=== PATIENT | male | born 1950 | race Two or more races ===

== ENCOUNTER 2016-07-08 13:52 | Emergency (ER) | payer BC ==
[~2016-07-08] VITALS: Ht 162.6 cm; Wt 83.9 kg
--- NOTE | 2016-07-08 14:32 | Emergency Room Report ---
History of Present Illness General Chief Complaint: Male Urogenital Problems Source: Patient Present Illness HPI Patient presents with 3 days of fevers chills and dysuria. He's also had blood in the urine. Couple months ago he also passed a kidney stone. At that time he also had fevers and chills. He saw his PMD. today and sent here to rule out a renal stone. The patient denies any flank pain or back pain. He denies nausea vomiting diarrhea cough sore throat rash. Pain 4/10, more dysuria - "like a habanero when I urinate". No abdominal pain or fullness. No change in bowels. Several months ago he had some reaction to eating spicy foods and he feels that this may be related (his thinks this is a contributing factor at least). No extremity pain, headache, depression, polyuria. Allergies: Coded Allergies: No Known Allergies (Unverified , 07/08/16) Patient History Past Medical History: see triage record, HTN Social History Narrative - noc analyst Reviewed Nursing Documentation: PMH: Agreed, PSxH: Agreed Nursing Documentation-PMH Past Medical History: No History, Except For Hx Hypertension: Yes Review of Systems All Other Systems: negative except mentioned in HPI Physical Exam Vital Signs Date Time Temp Pulse Resp B/P Pulse Ox O2 Delivery O2 Flow Rate FiO2 07/08/16 14:13 100.2 71 18 119/73 98 Room Air Sp02 EP Interpretation: reviewed, normal General Appearance: well appearing, no apparent distress, GCS 15 Head: normocephalic Eyes: bilateral eye PERRL, bilateral eye normal inspection ENT: moist mucus membranes Neck: supple Respiratory: lungs clear, normal breath sounds Cardiovascular #1: regular rate, rhythm Cardiovascular #2: 2+ radial (R) Gastrointestinal: normal inspection, normal bowel sounds, non tender, no mass, non-distended Genitourinary: no CVA tenderness Musculoskeletal: back normal, gait/station normal, normal range of motion Neurologic: alert, oriented x3, grossly normal Psychiatric: mood/affect normal - dry humor Skin: normal inspection, warm/dry Medical Decision Making Diagnostic Impression: Primary Impression: Pyelonephritis Additional Impression: Renal calculus, left ER Course Patient presents with chills fever dysuria and hematuria. Differential includes stone, pyelonephritis, urinary tract infection, prostatitis. He be evaluated with labs, urinalysis and ultrasound. He denies any pain at this time. He'll be given Tylenol as been having fevers and chills. In addition he appears normal the neck and therefore IV hydration as not necessary. Labs with normal WBC. Elevated creat (no prior labs). U/S with stone, no obstruction. Concern over possible infected stone and elevated creat, but patient not toxic and clinically improved. Attempt to speak to PMD - not able as phones not working. Will treat outpatient observation. Discussed need to be evaluated by urologist. If not doing well to return to be admitted to hospital. Patient a understand this plan. Patient stable for outpatient observation and treatment. Provided with labs. Not tx with flomax as stone not descending. If pain or sy worsen, should get CT. He understands we are observing him at home. Laboratory Tests Test 07/08/16 14:20 07/08/16 15:00 Urine Color Yellow Urine Appearance Clear Urine pH 5 (4.5-8.0) Urine Specific [place] 1.020 (1.005-1.035) Urine Protein 2+ (NEGATIVE) H Urine Glucose (UA) Negative (NEGATIVE) Urine Ketones 1+ (NEGATIVE) H Urine Occult Blood 2+ (NEGATIVE) H Urine Nitrite Negative (NEGATIVE) Urine Bilirubin 1+ (NEGATIVE) H Urine Ictotest Negative Urine Urobilinogen 8 MG/DL (0.0-1.0) H Urine Leukocyte Esterase 3+ (NEGATIVE) H Urine RBC 2-4 /HPF (0 - 0) H Urine WBC 15-20 /HPF (0 - 0) H Urine Squamous Epithelial Cells Occasional /LPF Urine Bacteria Few /HPF (NONE) Urine Mucus Few /LPF (NONE/OCC) H White Blood Count 7.3 K/UL (4.8-10.8) Red Blood Count 5.22 M/UL (4.70-6.10) Hemoglobin 16.0 G/DL (14.2-18.0) Hematocrit 48.0 % (42.0-52.0) Mean Corpuscular Volume 92 FL (80-99) Mean Corpuscular Hemoglobin 30.6 PG (27.0-31.0) Mean Corpuscular Hemoglobin Concent 33.3 G/DL (32.0-36.0) Red Cell Distribution Width 11.3 % (11.6-14.8) L Platelet Count 174 K/UL (150-450) Mean Platelet Volume 7.9 FL (6.5-10.1) Neutrophils (%) (Auto) 74.2 % (45.0-75.0) Lymphocytes (%) (Auto) 10.3 % (20.0-45.0) L Monocytes (%) (Auto) 14.7 % (1.0-10.0) H Eosinophils (%) (Auto) 0.1 % (0.0-3.0) Basophils (%) (Auto) 0.7 % (0.0-2.0) Sodium Level 134 mEQ/L (135-145) L Potassium Level 3.6 mEQ/L (3.4-4.9) Chloride Level 92 mEQ/L (98-107) L Carbon Dioxide Level 25 mEQ/L (20-30) Anion Gap 17 (5-15) H Blood Urea Nitrogen 28 mg/dL (7-23) H Creatinine 1.6 mg/dL (0.7-1.2) H Estimate Glomerular Filtration Rate 43.6 mL/min (>60) Glucose Level 124 mg/dL (74-106) H Calcium Level 9.6 mg/dL (8.6-10.2) Total Bilirubin 0.5 mg/dL (0.0-1.2) Aspartate Amino Transferase (AST) 28 U/L (5-40) Alanine Aminotransferase (ALT) 24 U/L (3-41) Alkaline Phosphatase 85 U/L (40-129) Total Protein 8.0 g/dL (6.6-8.7) Albumin 4.0 g/dL (3.5-5.2) Globulin 4.0 g/dL Albumin/Globulin Ratio 1.0 (1.0-2.7) Lipase 33 U/L (< 60) CT/MRI/US Diagnostic Results CT/MRI/US Diagnostic Results : Imaging Test Ordered: ultrasound Impression L renal stone, no hydro Findings: The pancreas is unremarkable. Liver demonstrates diffusely increased echogenicity, consistent with diffuse hepatocellular disease, most likely fatty change. There is an area of focal sparing in the usual location. No focal abnormalities otherwise. Patent portal and hepatic veins. The right kidney measures 11.7 cm in length. Demonstrates normal echogenicity, no hydronephrosis or focal abnormality. The gallbladder is unremarkable, no stones, wall thickening, nor pericholecystic fluid. Common bile duct is upper limits of normal in caliber , 7 mm diameter. The prostate is enlarged, demonstrating prostate volume of 108 mL. Left kidney measures 13.5 cm in length. It demonstrates an echogenic focus in the renal sinus which could represent a calcification. Spleen is mildly enlarged, measuring 13.6 cm long axis dimension. Normal caliber abdominal aorta. Unremarkable inferior vena cava. Impression: Liver demonstrates diffusely increased echogenicity, consistent with diffuse hepatocellular disease, most likely fatty change. Splenomegaly Negative for gallstones Possible nonobstructing left renal calculus Enlarged prostate Last Vital Signs Date Time Temp Pulse Resp B/P Pulse Ox O2 Delivery O2 Flow Rate FiO2 07/08/16 18:05 98.0 82 16 130/80 98 Room Air Status: improved Disposition: HOME, SELF-CARE Condition: Improved Scripts Ciprofloxacin* (CIPRO*) 500 Mg Tablet 500 MG PO BID, #20 TAB Prov: Alistair Stephens M.D. 07/08/16 Phenazopyridine Hcl* (PYRIDIUM*) 200 Mg Tablet 200 MG ORAL THREE TIMES A DAY Y for dysuria, #9 TAB 0 Refills Prov: Alistair Stephens M.D. 07/08/16 Alistair Stephens M.D. Jul 08, 2016 14:32
[2016-07-08] MEDS ORDERED: Phenazopyridine 200mg tab ORAL ONE (14:45)
[2016-07-08 14:54] LABS: APPEARANCE,URINE CLEAR; KETONES,URINE 1+ (NEGATIVE); LEUKOCYTE ESTERASE ,URINE 3+ (NEGATIVE); NITRITE,URINE NEGATIVE (NEGATIVE); PH,URINE 5 (4.5-8.0); PROTEIN,URINE 2+ (NEGATIVE); UROBILINOGEN,URINE 8 MG/DL (0.0-1.0)
[2016-07-08 15:02] LABS: BACTERIA,URINE FEW /HPF; MUCUS,URINE FEW /LPF (NONE/OCC); SQUAMOUS EPITHELIAL CELL,UR OCCASIONAL /LPF (NONE/OCC); WBC,URINE 15-20 /HPF (0 - 0)
[2016-07-08 15:03] LABS: ICTOTEST NEGATIVE
[2016-07-08] MEDS ORDERED: cefTRIAXone 1 GM in NS 55 ML IVPB ONE (15:30)
[2016-07-08 15:32] LABS: BASOPHILS % (AUTO) 0.7 % (0.0-2.0); EOSINOPHILS % (AUTO) 0.1 % (0.0-3.0); LYMPHOCYTES % (AUTO) 10.3 % (20.0-45.0); MEAN CORPUSCULAR HEMOGLOBIN 30.6 PG (27.0-31.0); MEAN CORPUSCULAR HGB CONC 33.3 G/DL (32.0-36.0); MEAN CORPUSCULAR VOLUME 92 FL (80-99); MEAN PLATELET VOLUME 7.9 FL (6.5-10.1); MONOCYTES % (AUTO) 14.7 % (1.0-10.0); NEUTROPHILS % (AUTO) 74.2 % (45.0-75.0); PLATELET COUNT 174 K/UL (150-450); RED BLOOD COUNT 5.22 M/UL (4.70-6.10); RED CELL DISTRIBUTION WIDTH 11.3 % (11.6-14.8); WHITE BLOOD COUNT 7.3 K/UL (4.8-10.8)
[2016-07-08 15:57] LABS: CALCIUM 9.6 mg/dL (8.6-10.2); CREATININE 1.6 mg/dL (0.7-1.2); GLOMERULAR FILTRATION RATE 43.6 mL/min (>60); POTASSIUM 3.6 mEQ/L (3.4-4.9)
[2016-07-08] MEDS ORDERED: PHENAZOPYRIDIN200 MG ORAL (17:47)
[2016-07-08] MEDS ORDERED: CIPRO500 MG PO (17:47)
[2016-07-08 18:05] VITALS: BP 130/80
--- NOTE | 2016-07-09 08:36 | Diagnostic Imaging Report ---
Indication: Abdominal pain and flank pain Technique: Patel-scale and duplex images of the upper abdomen were obtained Comparison: None Findings: The pancreas is unremarkable. Liver demonstrates diffusely increased echogenicity, consistent with diffuse hepatocellular disease, most likely fatty change. There is an area of focal sparing in the usual location. No focal abnormalities otherwise. Patent portal and hepatic veins. The right kidney measures 11.7 cm in length. Demonstrates normal echogenicity, no hydronephrosis or focal abnormality. The gallbladder is unremarkable, no stones, wall thickening, nor pericholecystic fluid. Common bile duct is upper limits of normal in caliber, 7 mm diameter. The prostate is enlarged, demonstrating prostate volume of 108 mL. Left kidney measures 13.5 cm in length. It demonstrates an echogenic focus in the renal sinus which could represent a calcification. Spleen is mildly enlarged, measuring 13.6 cm long axis dimension. Normal caliber abdominal aorta. Unremarkable inferior vena cava. Impression: Liver demonstrates diffusely increased echogenicity, consistent with diffuse hepatocellular disease, most likely fatty change. Splenomegaly Negative for gallstones Possible nonobstructing left renal calculus Enlarged prostate
== END 2016-07-08 18:06 | disposition home or self-care (01) ==
LOC: EMR 16:14
DX: N12 Tubulo-interstitial nephritis, not specified as acute or chronic (principal); N20.0 Calculus of kidney; I10 Essential (primary) hypertension; R16.1 Splenomegaly, not elsewhere classified; N40.0 Benign prostatic hyperplasia without lower urinary tract symptoms
CPT/HCPCS: 36415; 76700; 80053; 81003; 83690; 85025; 87086; 96374; 99284; J0696